=== PATIENT | female | born 1955 | race Caucasian/White ===

== ENCOUNTER 2017-10-23 13:37 | Emergency (ER) | payer OTHER ==
--- OUTSIDE RECORDS SUMMARY | 2017-10-23 13:39 | XMS REPORT | Clinical Summary ---
:1955 Author Organization [facility] Address [address] [place] [address] Care Team Providers Name Role Phone Martin Johnson MD Primary Care Provider Allergies Active Allergy Reactions Severity Noted Date Comments Codeine 09/12/2016 Current Medications Prescription Sig. Disp. Refills Start Date End Date Status atorvastatin (LIPITOR) 20 08/10/2016 Active MG tablet losartan (COZAAR) 25 MG 08/10/2016 Active tablet metFORMIN XR Take 750 mg by Active (GLUCOPHAGE-XR) 750 mg 24 mouth daily with hr tablet breakfast. multivitamin (THERAGRAN) Take 1 tablet by Active tablet mouth daily. Active Problems Problem Noted Date SOB (shortness of breath) 09/12/2016 Pre-op evaluation 09/12/2016 Family History Medical History Relation Name Comments Hypertension Brother Hypertension Father Hypertension Mother Stroke Paternal Grandfather Relation Name Status Comments Brother Father Mother Alive Valve replacement Paternal Grandfather Social History Tobacco Use Types Packs/Day Years Used Date Never Smoker Alcohol Use Drinks/Week oz/Week Comments No Sex Assigned at Date Recorded Not on file Last Filed Vital Signs Not on file Plan of Treatment Health Maintenance Due Date Last Done Comments PAP SMEAR 1975 COLONOSCOPY 02/14/2004 MAMMOGRAM 02/14/2004 ZOSTER VACCINE 2014 INFLUENZA VACCINE 02/18/2018 Results Not on fileafter 10/22/2016 Insurance Payer Benefit Plan / Group Subscriber ID Type Phone Address AETNA AETNA HMO,POS,EPO, MC/EC xxxxxxxxx HMO [phone] [place] [address]
[2017-10-23 14:26] LABS: Glucose Level 104 mg/dL (65-120); Lipase 20 U/L (22-51)
[2017-10-23 14:27] LABS: Absolute Lymphocytes (CBC) 1.8 K/uL (0.7-4.9); Absolute Monocytes 0.7 K/uL (0.1-1.3); Absolute Neutrophil 4.3 K/uL (1.8-8.0); Basophils % 1.1 % (0-1.3); Eosinophils % 5.3 % (0-4.4); Hematocrit 36.3 % (36.0-45.0); Lymphocytes % 24.2 % (15.3-44.8); MCH 30.3 pg (27.0-35.0); MCV 90.9 fL (80-100); MPV 9.6 fL (7.6-11.3); Monocytes % 10.3 % (3.3-12.3); RBC Red Blood Cell Count 3.99 M/uL (3.86-4.86)
[2017-10-23 14:32] LABS: ALT/SGPT 29 IU/L (10-60); AST/SGOT 33 IU/L (10-42); Albumin 4.1 g/dL (3.2-5.5); Alkaline Phosphatase 55 IU/L (42-121); Amylase Level 48 U/L (28-100); BUN Blood Urea Nitrogen 14 mg/dL (6-20); Bilirubin Direct 0.1 mg/dL (0-0.2); Bilirubin Total 0.6 mg/dL (0.3-1.2)
[2017-10-23 14:40] LABS: Bicarbonate 25 mEq/L (21-31); Potassium 3.7 mEq/L (3.6-5.0); Sodium Level 138 mEq/L (135-145)
[2017-10-23 15:03] LABS: Urine Bacteria <20 /HPF (<20); Urine Culture Reflex Order NOT NEEDED; Urine Mucus 1+ /HPF (NONE SEEN); Urine RBC <5 /HPF (NONE SEEN)
[2017-10-23 15:06] LABS: Urine Blood NEGATIVE (NEG); Urine Glucose NEGATIVE (NEG); Urine Protein NEGATIVE (NEG); Urine Specific Gravity 1.015 (1.005-1.030); Urine pH 5.5 (5.0-7.0)
--- NOTE | 2017-10-23 15:35 | ER ---
Nurse's Notes [facility] Name: Nathalie Lagos Age: 62 yrs Sex: Female : 1955 Arrival Date: 10/23/2017 Time: 13:41 Bed 30 Private MD: Srinivasan Johnson B Diagnosis: Abdominal tenderness-resolved;Type 2 diabetes mellitus Presentation: 10/23 13:41 Presenting complaint: Patient states: my stomach hurt and this started today at noon; hj denies nausea and vomiting; denies diarrhea ort constipation; denies fever and chills;. Transition of care: patient was not received from another setting of care. Onset of symptoms was October 23, 2017. Care prior to arrival: None. 13:41 Method Of Arrival: Ambulatory 13:41 Acuity: TRISHA 3 hj Triage Assessment: 13:44 General: Appears in no apparent distress. uncomfortable, Behavior is calm, cooperative, hj appropriate for age. Pain: Complains of pain in right upper quadrant and right lower quadrant. GI: Reports lower abdominal pain, upper abdominal pain. Historical: - Allergies: 13:44 Codeine; hj - Home Meds: 13:44 None [Active]; hj - PMHx: 13:44 Diabetes - NIDDM; Hypertension; hj - PSHx: 13:44 shoulder surgery; Carpal Tunnel Repair; Gastric Bypass; Cholecystectomy; hj - Immunization history:: Adult Immunizations up to date. - Social history:: Smoking status: Patient/guardian denies using tobacco, never smoked, Patient uses. - Family history:: not pertinent. Screenin:00 Abuse screen: Denies threats or abuse. Nutritional screening: No deficits noted. tl3 Tuberculosis screening: No symptoms or risk factors identified. Fall Risk None identified. Assessment: 13:45 GI: Bowel sounds present X 4 quads. Abd is soft Abdomen is tender to palpation. hj 14:00 General: Appears in no apparent distress. slender, well groomed, well developed, well tl3 nourished, Behavior is calm, cooperative, appropriate for age. Pain: Complains of pain in abdomen and right lower quadrant and right upper quadrant Pain currently is 8 out of 10 on a pain scale. Neuro: Level of Consciousness is awake, alert, obeys commands. Cardiovascular: Reports None Heart tones S1 S2 present Capillary refill < 3 seconds in right in left fingers. Respiratory: Airway is patent Trachea midline Respiratory effort is even, unlabored, Respiratory pattern is regular, symmetrical. : No signs and/or symptoms were reported regarding the genitourinary system. EENT: No signs and/or symptoms were reported regarding the EENT system. Derm: No signs and/or symptoms reported regarding the dermatologic system. Musculoskeletal: No signs and/or symptoms reported regarding the musculoskeletal system. 15:19 Reassessment: Patient appears in no apparent distress at this time. No changes from tl3 previously documented assessment. Patient and/or family updated on plan of care and expected duration. Pain level reassessed. Patient is alert, oriented x 3, equal unlabored respirations, skin warm/dry/pink. blankets offered to pt, awaiting lab results, no needs at this time. 16:37 Reassessment: Patient appears in no apparent distress at this time. No changes from tl3 previously documented assessment. Patient and/or family updated on plan of care and expected duration. Pain level reassessed. Patient is alert, oriented x 3, equal unlabored respirations, skin warm/dry/pink. All labs back and WNL. Vital Signs: 13:45 BP 154 / 80; Pulse 74; Resp 18; Temp 98.7(TE); Pulse Ox 100% on R/A; Weight 79.38 kg; hj Height 5 ft. 8 in. (172.72 cm); Pain 2/10; 15:19 BP 142 / 80; Pulse 67; Resp 18; Pulse Ox 100% ; tl3 16:37 BP 130 / 70; Pulse 72; Resp 18; Pulse Ox 100% ; tl3 13:45 Body Mass Index 26.61 (79.38 kg, 172.72 cm) ED Course: 13:41 Patient arrived in ED. rg4 13:41 Srinivasan Johnson MD is Private Physician. rg4 13:43 Triage completed. hj 13:44 Arm band placed on right wrist. hj 13:50 Scott Gaming MD is Attending Physician. [facility] 13:55 Julieta Mendoza, RN is Primary Nurse. tl3 14:00 Patient has correct armband on for positive identification. Placed in gown. Bed in low tl3 position. Call light in reach. Side rails up X 1. 14:00 No provider procedures requiring assistance completed. Initial lab(s) drawn, by me, tl3 sent to lab. Inserted saline lock: 22 gauge in right forearm, using aseptic technique. Blood collected. 15:19 Pulse ox on. NIBP on. Warm blanket given. tl3 15:34 Srinivasan Johnson MD is Referral Physician. [facility] 15:50 Initial lab(s) drawn, by ga, sent to lab. iw 15:55 EKG done, by medical lab technician. reviewed by Scott Gaming MD. at1 16:37 IV discontinued, intact, bleeding controlled, No redness/swelling at site. Pressure tl3 dressing applied. Administered Medications: No medications were administered Outcome: 15:35 Discharge ordered by . monika 16:37 Discharged to home ambulatory. tl3 16:37 Condition: good 16:37 Discharge instructions given to patient, Instructed on discharge instructions, follow up and referral plans. Demonstrated understanding of instructions, follow-up care, stressed fluid intake, follow up with PCP or returning to ED if S/S worsen 16:39 Patient left the ED. tl3 Signatures: Scott Gaming MD MD cha Williams, Irene, RN RN Thuy perez, offal worker EKG Tat1 Lisandro Styles, RN Bhavna Denis rg4 Julieta Mendoza, RN RN tl3
--- NOTE | 2017-10-23 15:36 | EDPHYS ---
Physician Documentation [facility] Name: Nathalie Lagos Age: 62 yrs Sex: Female : 1955 Arrival Date: 10/23/2017 Time: 13:41 Bed 30 Private MD: Srinivasan Johnson B ED Physician Scott Gaming HPI: 10/23 15:24 This 62 yrs old Female presents to ER via Ambulatory with complaints of monika Abdominal Pain. 15:24 The patient presents with abdominal pain in the right upper quadrant. Onset: The monika symptoms/episode began/occurred just prior to arrival. The symptoms do not radiate. Associated signs and symptoms: none. The symptoms are described as crampy. Modifying factors: The symptoms are alleviated by nothing, the symptoms are aggravated by nothing. Severity of pain: At its worst the pain was mild in the emergency department the pain is unchanged. The patient has not experienced similar symptoms in the past. Historical: - Allergies: 13:44 Codeine; hj - Home Meds: 13:44 None [Active]; hj - PMHx: 13:44 Diabetes - NIDDM; Hypertension; hj - PSHx: 13:44 shoulder surgery; Carpal Tunnel Repair; Gastric Bypass; Cholecystectomy; hj - Immunization history:: Adult Immunizations up to date. - Social history:: Smoking status: Patient/guardian denies using tobacco, never smoked, Patient uses. - Family history:: not pertinent. ROS: 15:24 Constitutional: Negative for fever, chills, and weight loss, Eyes: Negative for injury, monika pain, redness, and discharge, ENT: Negative for injury, pain, and discharge, Neck: Negative for injury, pain, and swelling, Cardiovascular: Negative for chest pain, palpitations, and edema, Respiratory: Negative for shortness of breath, cough, wheezing, and pleuritic chest pain, Back: Negative for injury and pain, : Negative for injury, bleeding, discharge, and swelling, MS/Extremity: Negative for injury and deformity, Skin: Negative for injury, rash, and discoloration, Neuro: Negative for headache, weakness, numbness, tingling, and seizure. 15:24 Abdomen/GI: Positive for abdominal pain, of the right upper quadrant. Exam: 15:24 Constitutional: This is a well developed, well nourished patient who is awake, alert, monika and in no acute distress. Head/Face: Normocephalic, atraumatic. Eyes: Pupils equal round and reactive to light, extra-ocular motions intact. Lids and lashes normal. Conjunctiva and sclera are non-icteric and not injected. Cornea within normal limits. Periorbital areas with no swelling, redness, or edema. ENT: Nares patent. No nasal discharge, no septal abnormalities noted. Tympanic membranes are normal and external auditory canals are clear. Oropharynx with no redness, swelling, or masses, exudates, or evidence of obstruction, uvula midline. Mucous membranes moist. Neck: Trachea midline, no thyromegaly or masses palpated, and no cervical lymphadenopathy. Supple, full range of motion without nuchal rigidity, or vertebral point tenderness. No Meningismus. Chest/axilla: Normal chest wall appearance and motion. Nontender with no deformity. No lesions are appreciated. Cardiovascular: Regular rate and rhythm with a normal S1 and S2. No gallops, murmurs, or rubs. Normal PMI, no JVD. No pulse deficits. Respiratory: Lungs have equal breath sounds bilaterally, clear to auscultation and percussion. No rales, rhonchi or wheezes noted. No increased work of breathing, no retractions or nasal flaring. Abdomen/GI: Soft, non-tender, with normal bowel sounds. No distension or tympany. No guarding or rebound. No evidence of tenderness throughout. Back: No spinal tenderness. No costovertebral tenderness. Full range of motion. Skin: Warm, dry with normal turgor. Normal color with no rashes, no lesions, and no evidence of cellulitis. MS/ Extremity: Pulses equal, no cyanosis. Neurovascular intact. Full, normal range of motion. Neuro: Awake and alert, GCS 15, oriented to person, place, time, and situation. Cranial nerves II-XII grossly intact. Motor strength 5/5 in all extremities. Sensory grossly intact. Cerebellar exam normal. Normal gait. Psych: Awake, alert, with orientation to person, place and time. Behavior, mood, and affect are within normal limits. Vital Signs: 13:45 BP 154 / 80; Pulse 74; Resp 18; Temp 98.7(TE); Pulse Ox 100% on R/A; Weight 79.38 kg; hj Height 5 ft. 8 in. (172.72 cm); Pain 2/10; 15:19 BP 142 / 80; Pulse 67; Resp 18; Pulse Ox 100% ; tl3 16:37 BP 130 / 70; Pulse 72; Resp 18; Pulse Ox 100% ; tl3 13:45 Body Mass Index 26.61 (79.38 kg, 172.72 cm) MDM: 13:59 Patient medically screened. [facility] 15:36 Data reviewed: vital signs, nurses notes, lab test result(s), EKG. [facility] 10/23 13:52 Order name: Amylase, Serum; Complete Time: 15:20 [facility] 10/23 13:52 Order name: Basic Metabolic Panel; Complete Time: 15:20 [facility] 10/23 13:52 Order name: CBC with Diff; Complete Time: 15:20 [facility] 10/23 13:52 Order name: Creatinine for Radiology; Complete Time: 15:20 [facility] 10/23 13:52 Order name: Hepatic Function; Complete Time: 15:20 [facility] 10/23 13:52 Order name: Lipase; Complete Time: 15:20 [facility] 10/23 13:52 Order name: Urine Microscopic Only; Complete Time: 15:20 [facility] 10/23 13:52 Order name: IV Saline Lock; Complete Time: 14:15 [facility] 10/23 13:52 Order name: Labs collected and sent; Complete Time: 14:15 [facility] 10/23 14:18 Order name: Urine Dipstick--Ancillary (enter results); Complete Time: 15:20 10/23 15:36 Order name: EKG; Complete Time: 15:36 [facility] 10/23 15:45 Order name: Ckmb [facility] 10/23 15:45 Order name: Creatine Phosphokinase [facility] 10/23 15:45 Order name: Troponin (emerg Dept Use Only) [facility] 10/23 13:52 Order name: Urine Dipstick-Ancillary (obtain specimen); Complete Time: 14:15 [facility] 10/23 15:36 Order name: EKG - Nurse/Tech; Complete Time: 15:45 [facility] Administered Medications: No medications were administered Disposition: 10/23/17 15:35 Discharged to Home. Impression: Abdominal tenderness - resolved, Type 2 diabetes mellitus. - Condition is Stable. - Discharge Instructions: Abdominal Pain, Adult, Abdominal Pain, Adult, [id number]. - Prescriptions for Bentyl 20 mg Oral Tablet - take 1 tablet by ORAL route every 6 hours As needed; 20 tablet. Pepcid 20 mg Oral Tablet - take 1 tablet by ORAL route every 12 hours for 10 days; 20 tablet. - Medication Reconciliation Form, Thank You Letter, Antibiotic Education, Prescription Opioid Use form. - Follow up: Srinivasan Johnson MD; When: 2 - 3 days; Reason: Recheck today's complaints, Re-evaluation by your physician. - Problem is new. - Symptoms have improved. Signatures: Dispatcher [employer] EDDE Scott Gaming MD MD cha Joaquin, Henry, RN RN hj Julieta Mendoza RN RN tl3
[2017-10-23 16:22] LABS: CKMB Creatine Kinase MB 1.5 ng/ml (0.3-4.0)
--- NOTE | 2017-10-23 16:39 | EKG ---
Test Date: 2017-10-23 Test Time: 15:41:26 Wage Analyst: PATRICIA MEASUREMENT RESULTS: Intervals: Rate: 59 NM: 176 QRSD: 90 QT: 442 QTc: 437 [place]: P: 63 NM: 176 QRS: 21 T: 50 INTERPRETIVE STATEMENTS: Sinus bradycardia Nonspecific ST abnormality Abnormal ECG No previous ECG available for comparison Electronically Signed On 10-23-17 16:39:03 CDT by Anil Adames
== END 2017-10-23 16:39 | disposition home or self-care (01) ==
LOC: ER 13:37
DX: E11.9 Type 2 diabetes mellitus without complications (principal); I10 Essential (primary) hypertension; Z88.5 Allergy status to narcotic agent
CPT/HCPCS: 36415; 80048; 80076; 81003; 81015; 82150; 82550; 82553; 83690; 84484; 85025; 93005; 99284